=== PATIENT | female | born 1965 | race Caucasian/White ===

== ENCOUNTER → 2018-05-11 07:00 | Outpatient (CLI) | payer OTHER, SELFPAY ==
[2018-05-11 07:19] LABS: Add Manual Diff / Slide Review NO; Basophils Percent Auto 1.4 % (0-2); Eosinophils Percent Auto 2.3 % (2-4); Hematocrit 43.7 % (36-46); Hemoglobin 14.8 g/dL (12.0-16.0); Mean Corpuscular HGB Conc 33.9 % (30-36); Mean Corpuscular Hemoglobin 34.6 PG (26-34); Mean Corpuscular Volume 102.3 fL (80-100); Monocytes Percent Auto 8.6 % (3-14); Neutrophils Absolute Auto 3600 /uL (3000-5900); Neutrophils Percent Auto 61.7 % (50-75); Platelet Count 214 X10^3/uL (150-400); Red Blood Cell Count 4.28 X10^6/uL (4.0-5.2); Red Cell Distribution Width 13.6 % (11.6-14.8); White Blood Cell Count 5.9 X10^3/uL (4.5-11.0)
[2018-05-11 07:32] LABS: Alanine Aminotransferase 71 IU/L (9-52); Albumin 4.8 g/dL (3.5-5.0); Albumin Globulin Ratio 1.7 (1.0-2.8); Alkaline Phosphatase 91 U/L (38-126); Aspartate Aminotransferase 87 IU/L (14-36); BUN Creatinine Ratio 18.3 (6-22); Bilirubin Total 0.6 mg/dL (0.2-1.3); Blood Urea Nitrogen 11 mg/dL (7-17); Calcium 9.6 mg/dL (8.4-10.2); Carbon Dioxide 29 mmol/L (22-32); Chloride 104 mmol/L (98-107); Estimated Glomerular Filt Rate > 60.0 mL/min (>60); Globulin 2.9 g/dL (1.7-4.1); Glucose 95 mg/dL (70-100); HEMOLYSIS 18 (0-50); Potassium 4.6 mmol/L (3.4-5.1); Sodium 145 mmol/L (137-145); Total Protein 7.7 g/dL (6.3-8.2)
[2018-05-11 08:44] LABS: Free T3, Triiodothyronine Free 3.48 pg/mL (2.77-5.27); Free T4, Direct Thyroxine 1.35 ng/dL (0.78-2.19)
[2018-05-11 08:57] LABS: Thyroid Stimulating Hormone 0.58 uIU/mL (0.47-4.68)
== END ==
PROVIDERS: PCP Family Medicine; Visit Provider Family Medicine
DX: E03.9 Hypothyroidism, unspecified (principal); E78.5 Hyperlipidemia, unspecified; Z51.81 Encounter for therapeutic drug level monitoring
CPT/HCPCS: 36415; 80053; 84439; 84443; 84481; 85025

== ENCOUNTER → 2018-06-14 14:50 | Outpatient (CLI) | payer OTHER, SELFPAY ==
--- NOTE | 2018-06-14 | DI.US.S_ITS ---
PROCEDURE: US ABDOMEN COMPLETE INDICATIONS: ELEVATED LIVER ENZYMES TECHNIQUE: Real-time scanning was performed of the abdominal and retroperitoneal organs, with image documentation. COMPARISON: [facility], US, ABDOMEN COMPLETE, 02/13/2014, 9:06. FINDINGS: Liver: Liver is diffusely increased in echogenicity. No focal hepatic abnormalities identified. Normal hepatic size. Gallbladder: No gallstones identified. Normal gallbladder wall. No pericholecystic fluid. Negative sonographic Valderrama sign. Biliary ducts: Intrahepatic bile ducts are non-dilated. Extrahepatic bile duct caliber measures 2.7 mm. Normal is 6-7 mm or less in diameter, or 10 mm or less post-cholecystectomy. Pancreas: Visualized portions of the pancreas are sonographically normal. Spleen: Spleen is normal in size and homogeneous in echotexture. Kidneys: Kidneys are normal in size and echotexture. Right kidney measures 10.8 cm long; left kidney measures 10.2 cm long. No hydronephrosis or nephrolithiasis. No solid masses. Aorta: Visualized aorta is normal in caliber at less than 3 cm. Iliacs: Proximal common iliac arteries are normal in caliber at less than 2.5 cm. IVC: Intrahepatic inferior vena cava is patent. Miscellaneous: No free abdominal fluid. IMPRESSION: Increased hepatic echogenicity noted possibly related to hepatic steatosis but other sources of hepatocellular disease cannot be excluded. Recommend clinical correlation. Dictated by: Gaurav SANCHEZ Interpreted: Clarke Smart MD on 06/14/2018 at 15:32 Approved by: Osito Nam M.D. on 06/15/2018 at 10:07
== END ==
PROVIDERS: PCP Family Medicine; Visit Provider Family Medicine
DX: K76.9 Liver disease, unspecified (principal); R74.8 Abnormal levels of other serum enzymes
CPT/HCPCS: 76700

== ENCOUNTER → 2018-06-21 07:10 | Outpatient (CLI) | payer OTHER, SELFPAY ==
[2018-06-21 08:16] LABS: Add Manual Diff / Slide Review NO; Basophils Percent Auto 1.1 % (0-2); Eosinophils Percent Auto 2.3 % (2-4); Hematocrit 43.2 % (36-46); Hemoglobin 14.8 g/dL (12.0-16.0); Lymphocytes Percent Auto 22.7 % (25-40); Mean Corpuscular HGB Conc 34.2 % (30-36); Mean Corpuscular Hemoglobin 34.1 PG (26-34); Mean Corpuscular Volume 99.7 fL (80-100); Monocytes Percent Auto 8.3 % (3-14); Neutrophils Absolute Auto 3900 /uL (3000-5900); Neutrophils Percent Auto 65.6 % (50-75); Platelet Count 198 X10^3/uL (150-400); Red Blood Cell Count 4.34 X10^6/uL (4.0-5.2); Red Cell Distribution Width 12.6 % (11.6-14.8); White Blood Cell Count 5.9 X10^3/uL (4.5-11.0)
[2018-06-21 08:34] LABS: Alanine Aminotransferase 52 IU/L (9-52); Albumin 4.4 g/dL (3.5-5.0); Albumin Globulin Ratio 1.7 (1.0-2.8); Alkaline Phosphatase 91 U/L (38-126); Aspartate Aminotransferase 57 IU/L (14-36); Bilirubin Total 0.7 mg/dL (0.2-1.3); Blood Urea Nitrogen 12 mg/dL (7-17); Carbon Dioxide 29 mmol/L (22-32); Chloride 102 mmol/L (98-107); Estimated Glomerular Filt Rate > 60.0 mL/min (>60); Globulin 2.6 g/dL (1.7-4.1); Glucose 103 mg/dL (70-100); HEMOLYSIS < 15 (0-50); Potassium 3.9 mmol/L (3.4-5.1); Sodium 141 mmol/L (137-145)
[2018-06-24 13:26] LABS: Hepatitis A Antibody IgM NONREACTIVE (NONREACTIVE); Hepatitis Acute Panel Interp 0.01 (NONREACTIVE); Hepatitis B Core Antibody IgM NONREACTIVE (NONREACTIVE); Hepatitis B Surface Antigen NONREACTIVE (NONREACTIVE); Hepatitis C Antibody NONREACTIVE
== END ==
PROVIDERS: PCP Family Medicine; Visit Provider Family Medicine
DX: K70.9 Alcoholic liver disease, unspecified (principal)
CPT/HCPCS: 36415; 80053; 80074; 85025

== ENCOUNTER → 2019-02-25 10:09 | Outpatient (CLI) | payer OTHER, SELFPAY ==
[2019-02-25 11:11] LABS: Hemoglobin 14.2 g/dL (12.0-16.0); Mean Corpuscular HGB Conc 33.8 % (30-36); Mean Corpuscular Hemoglobin 33.9 PG (26-34); Platelet Count 181 X10^3/uL (150-400); Red Cell Distribution Width 13.7 % (11.6-14.8); White Blood Cell Count 6.3 X10^3/uL (4.5-11.0)
[2019-02-25 11:14] LABS: Alanine Aminotransferase 75 IU/L (9-52); Albumin 4.3 g/dL (3.5-5.0); Albumin Globulin Ratio 1.6 (1.0-2.8); Alkaline Phosphatase 116 U/L (38-126); Aspartate Aminotransferase 68 IU/L (14-36); BUN Creatinine Ratio 18.3 (6-22); Bilirubin Total 0.9 mg/dL (0.2-1.3); Blood Urea Nitrogen 11 mg/dL (7-17); Calcium 9.7 mg/dL (8.4-10.2); Carbon Dioxide 30 mmol/L (22-32); Chloride 102 mmol/L (98-107); Cholesterol 192 mg/dL (140-199); Estimated Glomerular Filt Rate > 60.0 mL/min (>60); Globulin 2.7 g/dL (1.7-4.1); Glucose 105 mg/dL (70-100); HDL Cholesterol 58 mg/dL (40-60); HEMOLYSIS < 15 (0-50); LDL Cholesterol Calculated 107 mg/dL (<100); Potassium 4.2 mmol/L (3.4-5.1); Sodium 139 mmol/L (137-145); Triglycerides 134 mg/dL (35-150)
[2019-02-25 11:28] LABS: Free T3, Triiodothyronine Free 3.67 pg/mL (2.77-5.27); Free T4, Direct Thyroxine 0.96 ng/dL (0.78-2.19)
[2019-02-25 11:29] LABS: Neutrophils Absolute Manual 3906 /uL (3000-5900); Total Cells Counted 100
[2019-02-25 11:30] LABS: Macrocytosis 1+
[2019-02-25 11:31] LABS: RBC Morphology See
[2019-02-25 11:42] LABS: Thyroid Stimulating Hormone 0.72 uIU/mL (0.47-4.68)
== END ==
PROVIDERS: PCP Family Medicine; Visit Provider Family Medicine
DX: E03.9 Hypothyroidism, unspecified (principal); Z51.81 Encounter for therapeutic drug level monitoring
CPT/HCPCS: 36415; 80053; 80061; 84439; 84443; 84481; 85025

== ENCOUNTER → 2019-05-13 10:30 | Outpatient (CLI) | payer OTHER, SELFPAY ==
[2019-05-13 11:01] LABS: Influenza A and B by PCR Rapid Negative (Negative)
== END ==
PROVIDERS: PCP Family Medicine; Visit Provider Nurse Practitioner
DX: R68.89 Other general symptoms and signs (principal)
CPT/HCPCS: 87400; 87502

== ENCOUNTER 2019-07-18 11:09 | Emergency (ER) | payer OTHER, SELFPAY ==
[2019-07-18 11:17] VITALS: BP 130/90; PULSE 98; RESP 20; TEMP 36.4; O2SAT 99
[2019-07-18 11:29] LABS: Appearance Urine UA CLEAR; Bilirubin Urine UA NEGATIVE (NEGATIVE); Color Urine UA YELLOW; Glucose Urine UA NEGATIVE (Negative); Ketones Urine UA NEGATIVE (NEGATIVE); Leukocyte Esterase Urine UA NEGATIVE (NEGATIVE); Nitrite Urine UA NEGATIVE (Negative); Occult Blood Urine UA NEGATIVE (Negative); Protein Urine UA TRACE (Negative); Specific Gravity Urine UA 1.025 (1.000-1.035); Urobilinogen Urine UA 0.2 E.U./dL (0.2)
[2019-07-18 11:43] LABS: Add Manual Diff / Slide Review NO; Basophils Absolute Auto 100 /uL (0-100); Basophils Percent Auto 0.7 % (0-2); Eosinophils Absolute Auto 100 /uL (0-450); Eosinophils Percent Auto 1.5 % (2-4); Lymphocytes Absolute Auto 2300 /uL (1100-4500); Lymphocytes Percent Auto 30.5 % (25-40); Mean Corpuscular HGB Conc 34.8 % (30-36); Mean Corpuscular Hemoglobin 32.1 PG (26-34); Mean Corpuscular Volume 92.5 fL (80-100); Monocytes Absolute Auto 500 /uL (0-900); Monocytes Percent Auto 6.6 % (3-14); Neutrophils Absolute Auto 4600 /uL (1500-7000); Neutrophils Percent Auto 60.7 % (50-75); Platelet Count 194 X10^3/uL (150-400); Red Blood Cell Count 4.65 X10^6/uL (4.0-5.2); Red Cell Distribution Width 13.6 % (11.6-14.8); White Blood Cell Count 7.6 X10^3/uL (4.5-11.0)
--- NOTE | 2019-07-18 11:45 | ED.ABDPAIN ---
HPI - Abdominal Pain <Twila Chavez PA-C - Last Filed: 07/18/19 20:57> General Chief Complaint: Abdominal Pain Stated Complaint: bloody stool,stomach cramping,kidney pain,headache Time Seen by Provider: 07/18/19 11:26 Source: patient Mode of arrival: Ambulatory Limitations: no limitations History of Present Illness HPI narrative: This 53-year-old female comes to ED secondary to 1 week history of gradually worsening flank and lower abdominal pain and cramping. She states pain can radiate into the suprapubic area. She states that she has had small amounts of blood on the toilet paper intermittently, becoming more persistent, and she has been a bit constipated and straining more, but having regular bowel movements. She denies any hematuria or urinary symptoms. She states that with this, she has had fatigue and poor appetite. She has not eaten today, has tolerated fluids without problem. She denies nausea or vomiting. She denies fever, chills, sweats. States that she missed work yesterday, called her PCP to be seen and was sent here, need evaluation since she missed work again today. She states that she did eat a little bit yesterday. There don't seem to be alleviating or exacerbating features for pain, which is constant. She states that she doesn't typically take pain medicine for this at home, occasionally takes Tylenol or ibuprofen if needed. She states that she has some ongoing smoker's cough, no increased cough or upper respiratory symptoms. She denies chest pain or dyspnea. She previously abused alcohol but quit drinking in the summer. She denies history of gastritis or bleeding. She denies possibility of . Notes she has had intermittent vaginal spotting for more than a year, but doesn't think quite postmenopausal Related Data Previous Rx's Medication Instructions Recorded atorvastatin 40 mg tablet 40 mg PO HS #30 tab 04/18/19 levothyroxine 50 mcg tablet 50 mcg PO QAM #30 tab 04/18/19 venlafaxine 150 mg 150 mg PO QDAY #30 cap 04/18/19 capsule,extended release 24 hr ondansetron 4 mg disintegrating 4 mg PO Q8H #10 tab 05/13/19 tablet Allergies Allergy/AdvReac Type Severity Reaction Status Date / Time hydrocodone [HYDROCODONE] Allergy Intermediate Hives all Verified 05/13/19 10:25 over codeine [CODEINE] Allergy Unknown Verified 05/13/19 10:25 Patient History <Twila Chavez PA-C - Last Filed: 07/18/19 20:57> Medical History (Updated 07/18/19 @ 13:51 by Twila Chavez PA-C) Alcoholism in recovery (Chronic) Depression (Chronic) HTN (hypertension) (Chronic) Hyperlipidemia (Chronic) Hypothyroid (Chronic) Surgical History History of carpal tunnel repair Status post tubal ligation Social History Smoking Status: Current every day smoker Smoking Status: Current every day smoker Exam <Twila Chavez PA-C - Last Filed: 07/18/19 20:57> Narrative Exam Narrative: GENERAL APPEARANCE: Patient sitting comfortably, in no distress. HEENT: PERRL, EOMI, conjunctiva pink, no scleral icterus NECK: Supple, no masses LUNGS: Clear to auscultation bilaterally. HEART: Rate and rhythm regular, normal S1 and S2, no S3 or S4. ABDOMEN: Soft, nondistended, bowel sounds present x 4 quadrants, no masses palpable, no hepatosplenomegaly. Mild bilateral CVAT, minimal bilateral lower quadrant tenderness, mild suprapubic tenderness without guarding or rebound EXTREMITIES: No edema, no calf tenderness DERMATOLOGIC: No jaundice or exanthem NEUROLOGIC: Alert and oriented with normal speech and coordination RECTAL: There are some noninflamed tags, no visible external or palpable internal masses brown stool in vault, guaiac negative Initial Vital Signs Initial Vital Signs: Vital Signs Temperature 97.6 F 07/18/19 11:17 Pulse Rate 98 H 07/18/19 11:17 Respiratory Rate 20 07/18/19 11:17 Blood Pressure 130/90 07/18/19 11:17 Pulse Oximetry 99 07/18/19 11:17 <Maura Walton DO - Last Filed: 07/21/19 05:52> Initial Vital Signs Initial Vital Signs: Vital Signs Temperature 97.6 F 07/18/19 11:17 Pulse Rate 98 H 07/18/19 11:17 Respiratory Rate 20 07/18/19 11:17 Blood Pressure 130/90 07/18/19 11:17 Pulse Oximetry 99 07/18/19 11:17 Course <Twila Chavez PA-C - Last Filed: 07/18/19 20:57> Course Additional Information: Reviewed findings with patient, no clear surgical findings or indication for admission. She is feeling better after fluids and medications, tolerating oral fluids. She agrees to follow up with her PCP, preferably tomorrow to reassess and determine whether further workup or referral needed. Return precautions given and she is agreeable with these as well. Orders Ordered: Discontinued Medications Sodium Chloride (Normal Saline 0.9%) 1,000 mls @ 1,000 mls/hr IV BOLUS ONE Stop: 07/18/19 13:03 Last Infusion: 07/18/19 14:10 Dose: 0 mls/hr Documented by: Admin: 07/18/19 12:36 Dose: 1,000 mls/hr Documented by: RAMILA Ketorolac Tromethamine (Toradol) 30 mg IV NOW ONE Stop: 07/18/19 12:05 Last Admin: 07/18/19 12:36 Dose: 30 mg Documented by: RAMILA Pantoprazole Sodium (Protonix) 40 mg IV NOW ONE Stop: 07/18/19 12:08 Last Admin: 07/18/19 12:37 Dose: 40 mg Documented by: RAMILA Vital Signs Vital signs: Vital Signs - 8 hr 07/18/19 12:59 07/18/19 14:12 Temperature 97.6 F Pulse Rate 98 H 70 Respiratory Rate 20 Blood Pressure 130/90 121/76 Pulse Oximetry 99 100 <Maura Walton DO - Last Filed: 07/21/19 05:52> Orders Ordered: Discontinued Medications Sodium Chloride (Normal Saline 0.9%) 1,000 mls @ 1,000 mls/hr IV BOLUS ONE Stop: 07/18/19 13:03 Last Infusion: 07/18/19 14:10 Dose: 0 mls/hr Documented by: Admin: 07/18/19 12:36 Dose: 1,000 mls/hr Documented by: RAMILA Ketorolac Tromethamine (Toradol) 30 mg IV NOW ONE Stop: 07/18/19 12:05 Last Admin: 07/18/19 12:36 Dose: 30 mg Documented by: RAMILA Pantoprazole Sodium (Protonix) 40 mg IV NOW ONE Stop: 07/18/19 12:08 Last Admin: 07/18/19 12:37 Dose: 40 mg Documented by: RAMILA Vital Signs Vital signs: Vital Signs - 8 hr 07/18/19 12:59 07/18/19 14:12 Temperature 97.6 F Pulse Rate 98 H 70 Respiratory Rate 20 Blood Pressure 130/90 121/76 Pulse Oximetry 99 100 MDM - Abdominal Pain <Twila Chavez PA-C - Last Filed: 07/18/19 20:57> Lab Data Attestation: I reviewed the patient's lab results. Result diagrams: 07/18/19 11:30 07/18/19 11:30 Labs: Lab Results 07/18/19 07/18/19 07/18/19 Range/Units 11:20 11:30 11:30 WBC 7.6 (4.5-11.0) X10^3/uL RBC 4.65 (4.0-5.2) X10^6/uL Hgb 15.0 (12.0-16.0) g/dL Hct 43.0 (36-46) % MCV 92.5 (80-100) fL MCH 32.1 (26-34) PG MCHC 34.8 (30-36) % RDW 13.6 (11.6-14.8) % Plt Count 194 (150-400) X10^3/uL Neut % (Auto) 60.7 (50-75) % Lymph % (Auto) 30.5 (25-40) % Petroleum % (Auto) 6.6 (3-14) % Eos % (Auto) 1.5 L (2-4) % Baso % (Auto) 0.7 (0-2) % Neut # (Auto) 4600 (3695-1055) /uL Lymph # (Auto) 2300 (8280-6225) /uL Petroleum # (Auto) 500 (0-900) /uL Eos # (Auto) 100 (0-450) /uL Baso # (Auto) 100 (0-100) /uL Sodium 139 (137-145) mmol/L Potassium 4.1 (3.4-5.1) mmol/L Chloride 104 (98-107) mmol/L Carbon Dioxide 27 (22-32) mmol/L BUN 12 (7-17) mg/dL Creatinine 0.60 (0.52-1.04) mg/dL Estimated GFR > 60.0 (>60) mL/min BUN/Creatinine Ratio 20.0 (6-22) Glucose 98 (70-100) mg/dL Calcium 9.9 (8.4-10.2) mg/dL Total Bilirubin 0.7 (0.2-1.3) mg/dL AST 27 (14-36) IU/L ALT 19 (<35) IU/L Alkaline Phosphatase 90 (38-126) U/L Total Protein 7.2 (6.3-8.2) g/dL Albumin 4.5 (3.5-5.0) g/dL Globulin 2.7 (1.7-4.1) g/dL Albumin/Globulin Ratio 1.7 (1.0-2.8) Lipase 67 (23-300) U/L Urine Color Yellow Urine Appearance Clear Urine pH 6.0 (4.5-8.0) Ur Specific [place] 1.025 (1.000-1.035) Urine Protein Trace H (Negative) Urine Glucose (UA) Negative (Negative) g/dL Urine Ketones Negative (NEGATIVE) Urine Occult Blood Negative (Negative) Urine Nitrate Negative (Negative) Urine Bilirubin Negative (NEGATIVE) Urine Urobilinogen 0.2 (0.2) E.U./dL Ur Leukocyte Esterase Negative (NEGATIVE) Urine RBC 0-1/hpf (0-5/HPF) Urine WBC 0-1/hpf (0-5/HPF) Ur Squamous Epith Cells 5-10 /hpf H (0-5/HPF) Urine Bacteria Few (2-10) H (None) Urine Mucus 2+ H (Negative) Ur Culture Indicated? Cult not indicated Imaging Data KUB CT: Radiologist's impression: 17 Twila Chavez PA-C Find Patient Imaging - Lola Parsons 53 F 1965 ACTIVITY DATE EXAM STATUS AUTHOR 07/18/19 12:[address] [address] [address] Scan Report Signed Patient: Adelina Parsons#: [id number] : 1965Acct:[id number] Age/Sex: 53 / FDate of Service: 07/18/19 Loc: ED Accession Number: [id number] Procedure: CT kidney ureter bladder (KUB) Ordering Provider: Twila Chavez P.A-C PROCEDURE: CT KIDNEY URETER BLADDER (KUB) INDICATIONS: bilateral flank and suprapubic pain for 1 week TECHNIQUE: Noncontrast 5 mm thick sections acquired from the diaphragms to the symphysis. 5 mm thick coronal and sagittal reformats were then performed. For radiation dose reduction, the following was used: automated exposure control, adjustment of mA and/or kV according to patient size. COMPARISON: None. FINDINGS: Image quality: Excellent. Lung bases: Atelectasis noted in the lung bases bilaterally. Heart size is normal. Urinary system: Both kidneys are normal in size. No kidney stones. No hydronephrosis or perinephric fat stranding. Both ureters appear non-dilated throughout their expected courses. Bladder wall thickness is normal; no calcified bladder stones. Other solid organs: Liver is normal in size. Gallbladder is within normal limits. Pancreas is normal in contours. Spleen is normal in size. No adrenal nodules. Peritoneum and bowel: Unenhanced bowel loops demonstrate normal wall thickness and caliber. A few, scattered colonic diverticuli without evidence of diverticulitis. No free fluid or air. The appendix is normal. Nodes and vessels: No retroperitoneal or mesenteric adenopathy by size criteria. Aorta and inferior vena cava are normal in caliber. Scattered atherosclerotic calcifications involving the abdominal and pelvic vasculature. Abdominal wall: No ventral hernias. Pelvis: No free pelvic fluid. No inguinal hernias or adenopathy. Bones: No suspicious bony lesions. No vertebral body compression fractures. Spine degenerative disc disease and facet arthropathy. IMPRESSION: 1. No renal stone or hydronephrosis. 2. No evidence of appendicitis. 3. No free fluid or free air. 4. No dilated loops of bowel. Dictated by: Payton Santillan MD, PhD on 07/18/2019 at 13:22 Approved by: Payton Santillan MD, PhD on 07/18/2019 at 13:26 <Maura Walton DO - Last Filed: 07/21/19 05:52> Lab Data Labs: Lab Results 07/18/19 07/18/19 07/18/19 Range/Units 11:20 11:30 11:30 WBC 7.6 (4.5-11.0) X10^3/uL RBC 4.65 (4.0-5.2) X10^6/uL Hgb 15.0 (12.0-16.0) g/dL Hct 43.0 (36-46) % MCV 92.5 (80-100) fL MCH 32.1 (26-34) PG MCHC 34.8 (30-36) % RDW 13.6 (11.6-14.8) % Plt Count 194 (150-400) X10^3/uL Neut % (Auto) 60.7 (50-75) % Lymph % (Auto) 30.5 (25-40) % Petroleum % (Auto) 6.6 (3-14) % Eos % (Auto) 1.5 L (2-4) % Baso % (Auto) 0.7 (0-2) % Neut # (Auto) 4600 (6181-8886) /uL Lymph # (Auto) 2300 (9199-5309) /uL Petroleum # (Auto) 500 (0-900) /uL Eos # (Auto) 100 (0-450) /uL Baso # (Auto) 100 (0-100) /uL Sodium 139 (137-145) mmol/L Potassium 4.1 (3.4-5.1) mmol/L Chloride 104 (98-107) mmol/L Carbon Dioxide 27 (22-32) mmol/L BUN 12 (7-17) mg/dL Creatinine 0.60 (0.52-1.04) mg/dL Estimated GFR > 60.0 (>60) mL/min BUN/Creatinine Ratio 20.0 (6-22) Glucose 98 (70-100) mg/dL Calcium 9.9 (8.4-10.2) mg/dL Total Bilirubin 0.7 (0.2-1.3) mg/dL AST 27 (14-36) IU/L ALT 19 (<35) IU/L Alkaline Phosphatase 90 (38-126) U/L Total Protein 7.2 (6.3-8.2) g/dL Albumin 4.5 (3.5-5.0) g/dL Globulin 2.7 (1.7-4.1) g/dL Albumin/Globulin Ratio 1.7 (1.0-2.8) Lipase 67 (23-300) U/L Urine Color Yellow Urine Appearance Clear Urine pH 6.0 (4.5-8.0) Ur Specific [place] 1.025 (1.000-1.035) Urine Protein Trace H (Negative) Urine Glucose (UA) Negative (Negative) g/dL Urine Ketones Negative (NEGATIVE) Urine Occult Blood Negative (Negative) Urine Nitrate Negative (Negative) Urine Bilirubin Negative (NEGATIVE) Urine Urobilinogen 0.2 (0.2) E.U./dL Ur Leukocyte Esterase Negative (NEGATIVE) Urine RBC 0-1/hpf (0-5/HPF) Urine WBC 0-1/hpf (0-5/HPF) Ur Squamous Epith Cells 5-10 /hpf H (0-5/HPF) Urine Bacteria Few (2-10) H (None) Urine Mucus 2+ H (Negative) Ur Culture Indicated? Cult not indicated Discharge Plan Departure Patient Disposition: Home Clinical Impression: Flank pain, Rectal bleeding Discharge Date/Time: 07/18/19 14:12 Instructions: DI for Abdominal Pain-Adult, DI for Rectal Bleeding Activity Restrictions/Additional Instructions: There was no clear findings to explain your symptoms on your lab work or scan today. Since you are feeling better, I do think you can monitor at home, but please be sure to follow-up with your PCP, preferably tomorrow, to see how you are doing, determine whether you need further testing or referral and whether you can return to work. Please drink plenty of clear fluids and a bland diet as we talked about. You can add a little MiraLax, 1 dose daily, to help soften stools and help constipation. There was not blood in your stool when I examined you today, however this may need further testing as well. As we talked about, you should return if you have any acutely worsening symptoms, or new symptoms such as fever or protracted vomiting. Prescriptions: No Action ondansetron 4 mg tablet,disintegrating 4 mg PO Q8H Qty: 10 RF: 0 atorvastatin [Lipitor] 40 mg tablet 40 mg PO HS Qty: 30 RF: 5 levothyroxine 50 mcg tablet 50 mcg PO QAM Qty: 30 RF: 5 venlafaxine [Effexor XR] 150 mg capsule,extended release 24hr 150 mg PO QDAY Qty: 30 RF: 5 Referrals: MarcioAngelika, [Primary Care Provider] - Stand Alone Forms: Work Release Note
[2019-07-18 11:46] LABS: Bacteria Urine Few (2-10); Culture Indicated Urine Cult Not Indicated; Mucus Urine 2+ (Negative); RBC Urine 0-1/HPF (0-5/HPF); Squamous Epithelial Cell Urine 5-10 /HPF (0-5/HPF); WBC Urine 0-1/HPF (0-5/HPF)
[2019-07-18 11:55] LABS: Alanine Aminotransferase 19 IU/L (<35); Albumin 4.5 g/dL (3.5-5.0); Albumin Globulin Ratio 1.7 (1.0-2.8); Alkaline Phosphatase 90 U/L (38-126); Aspartate Aminotransferase 27 IU/L (14-36); Bilirubin Total 0.7 mg/dL (0.2-1.3); Blood Urea Nitrogen 12 mg/dL (7-17); Calcium 9.9 mg/dL (8.4-10.2); Carbon Dioxide 27 mmol/L (22-32); Chloride 104 mmol/L (98-107); Estimated Glomerular Filt Rate > 60.0 mL/min (>60); Globulin 2.7 g/dL (1.7-4.1); Glucose 98 mg/dL (70-100); HEMOLYSIS < 15 (0-50); Lipase 67 U/L (23-300); Potassium 4.1 mmol/L (3.4-5.1); Sodium 139 mmol/L (137-145); Total Protein 7.2 g/dL (6.3-8.2)
--- NOTE | 2019-07-18 12:12 | DI.CT.S_ITS ---
PROCEDURE: CT KIDNEY URETER BLADDER (KUB) INDICATIONS: bilateral flank and suprapubic pain for 1 week TECHNIQUE: Noncontrast 5 mm thick sections acquired from the diaphragms to the symphysis. 5 mm thick coronal and sagittal reformats were then performed. For radiation dose reduction, the following was used: automated exposure control, adjustment of mA and/or kV according to patient size. COMPARISON: None. FINDINGS: Image quality: Excellent. Lung bases: Atelectasis noted in the lung bases bilaterally. Heart size is normal. Urinary system: Both kidneys are normal in size. No kidney stones. No hydronephrosis or perinephric fat stranding. Both ureters appear non-dilated throughout their expected courses. Bladder wall thickness is normal; no calcified bladder stones. Other solid organs: Liver is normal in size. Gallbladder is within normal limits. Pancreas is normal in contours. Spleen is normal in size. No adrenal nodules. Peritoneum and bowel: Unenhanced bowel loops demonstrate normal wall thickness and caliber. A few, scattered colonic diverticuli without evidence of diverticulitis. No free fluid or air. The appendix is normal. Nodes and vessels: No retroperitoneal or mesenteric adenopathy by size criteria. Aorta and inferior vena cava are normal in caliber. Scattered atherosclerotic calcifications involving the abdominal and pelvic vasculature. Abdominal wall: No ventral hernias. Pelvis: No free pelvic fluid. No inguinal hernias or adenopathy. Bones: No suspicious bony lesions. No vertebral body compression fractures. Spine degenerative disc disease and facet arthropathy. IMPRESSION: 1. No renal stone or hydronephrosis. 2. No evidence of appendicitis. 3. No free fluid or free air. 4. No dilated loops of bowel. Dictated by: Payton Santillan MD, PhD on 07/18/2019 at 13:22 Approved by: Payton Santillan MD, PhD on 07/18/2019 at 13:26
[2019-07-18] MEDS: KETOROLAC 60 MG/2 ML VIAL 30 MG IV (12:36)
[2019-07-18] MEDS: SODIUM CHLORIDE 0.9% 1,000 ML 1000 ML IV (12:36)
[2019-07-18] MEDS: PANTOPRAZOLE 40 MG VIAL IV (12:37)
[2019-07-18 12:59] VITALS: BP 130/90; PULSE 98; RESP 20; TEMP 36.4; O2SAT 99
[2019-07-18 14:12] VITALS: BP 121/76; PULSE 70; O2SAT 100
== END 2019-07-18 14:12 | disposition home or self-care (01) ==
PROVIDERS: Emergency Medicine; Emergency Provider Internal Medicine; PCP Family Medicine
DX: R10.9 Unspecified abdominal pain (principal); K62.5 Hemorrhage of anus and rectum; I10 Essential (primary) hypertension; E78.5 Hyperlipidemia, unspecified; E03.9 Hypothyroidism, unspecified
CPT/HCPCS: 74176; 80053; 81001; 83690; 85025; 96361; 96374; 96375; 99284; C9113; J1885

== ENCOUNTER → 2019-07-22 10:07 | Outpatient (CLI) | payer OTHER, SELFPAY | PROVIDERS: PCP Family Medicine; Visit Provider Family Medicine | DX: R35.0 Frequency of micturition (principal) | CPT/HCPCS: 87086 ==

== ENCOUNTER → 2020-02-06 07:58 | Outpatient (CLI) | payer OTHER, SELFPAY ==
[2020-02-06 08:32] LABS: Hematocrit 42.2 % (36-46); Hemoglobin 14.8 g/dL (12.0-16.0); Mean Corpuscular HGB Conc 35.1 % (30-36); Mean Corpuscular Hemoglobin 32.6 PG (26-34); Mean Corpuscular Volume 92.9 fL (80-100); Platelet Count 200 X10^3/uL (150-400); Red Blood Cell Count 4.54 X10^6/uL (4.0-5.2); Red Cell Distribution Width 13.6 % (11.6-14.8); White Blood Cell Count 6.8 X10^3/uL (4.5-11.0)
[2020-02-06 08:43] LABS: Alanine Aminotransferase 34 IU/L (<35); Albumin 4.6 g/dL (3.5-5.0); Albumin Globulin Ratio 1.9 (1.0-2.8); Alkaline Phosphatase 102 U/L (38-126); Aspartate Aminotransferase 35 IU/L (14-36); BUN Creatinine Ratio 28.3 (6-22); Bilirubin Total 0.5 mg/dL (0.2-1.3); Blood Urea Nitrogen 17 mg/dL (7-17); Calcium 10.3 mg/dL (8.4-10.2); Carbon Dioxide 26 mmol/L (22-32); Chloride 107 mmol/L (98-107); Cholesterol 203 mg/dL (140-199); Estimated Glomerular Filt Rate > 60.0 mL/min (>60); Globulin 2.4 g/dL (1.7-4.1); Glucose 106 mg/dL (70-100); HDL Cholesterol 65 mg/dL (40-60); HEMOLYSIS < 15 (0-50); LDL Cholesterol Calculated 122 mg/dL (<100); Potassium 4.7 mmol/L (3.4-5.1); Sodium 139 mmol/L (137-145); Triglycerides 78 mg/dL (35-150)
== END ==
PROVIDERS: PCP Nurse Practitioner Family; Referring Provider Nurse Practitioner Family; Visit Provider Nurse Practitioner Family
DX: E03.9 Hypothyroidism, unspecified (principal); I10 Essential (primary) hypertension; E78.5 Hyperlipidemia, unspecified
CPT/HCPCS: 36415; 80053; 80061; 84443; 85027

== ENCOUNTER → 2021-04-21 07:24 | Outpatient (CLI) | payer OTHER, SELFPAY ==
[2021-04-21 15:54] LABS: Thyroid Stimulating Hormone 2.15 uIU/mL (0.47-4.68)
== END ==
PROVIDERS: PCP Physician Assistant; Referring Provider Physician Assistant; Visit Provider Physician Assistant
DX: E03.9 Hypothyroidism, unspecified (principal)
CPT/HCPCS: 36415; 84443

== ENCOUNTER → 2021-05-26 13:37 | Outpatient (CLI) | payer OTHER, SELFPAY ==
[2021-05-26 14:05] LABS: Add Manual Diff / Slide Review NO; Basophils Absolute Auto 0 /uL (0-100); Basophils Percent Auto 0.4 % (0-2); Eosinophils Absolute Auto 100 /uL (0-450); Eosinophils Percent Auto 1.4 % (2-4); Hematocrit 40.5 % (36-46); Hemoglobin 13.5 g/dL (12.0-16.0); Lymphocytes Absolute Auto 2900 /uL (1100-4500); Lymphocytes Percent Auto 45.6 % (25-40); Mean Corpuscular HGB Conc 33.4 % (30-36); Mean Corpuscular Hemoglobin 31.5 PG (26-34); Mean Corpuscular Volume 94.5 fL (80-100); Monocytes Absolute Auto 600 /uL (0-900); Monocytes Percent Auto 9.1 % (3-14); Neutrophils Absolute Auto 2700 /uL (1500-7000); Neutrophils Percent Auto 43.5 % (50-75); Platelet Count 197 X10^3/uL (150-400); Red Blood Cell Count 4.29 X10^6/uL (4.0-5.2); Red Cell Distribution Width 12.9 % (11.6-14.8); White Blood Cell Count 6.3 X10^3/uL (4.5-11.0)
[2021-05-26 14:25] LABS: Alanine Aminotransferase 40 IU/L (<35); Albumin 4.7 g/dL (3.5-5.0); Albumin Globulin Ratio 1.8 (1.0-2.8); Alkaline Phosphatase 88 U/L (38-126); Aspartate Aminotransferase 35 IU/L (14-36); Bilirubin Total 0.8 mg/dL (0.2-1.3); Blood Urea Nitrogen 16 mg/dL (7-17); Calcium 9.6 mg/dL (8.4-10.2); Carbon Dioxide 23 mmol/L (22-32); Chloride 105 mmol/L (98-107); Estimated Glomerular Filt Rate > 60.0 mL/min (>60); Globulin 2.6 g/dL (1.7-4.1); Glucose 87 mg/dL (70-100); HEMOLYSIS < 15 (0-50); Sodium 137 mmol/L (137-145); Total Protein 7.3 g/dL (6.3-8.2)
[2021-05-26 14:41] LABS: Free T4, Direct Thyroxine 0.89 ng/dL (0.78-2.19)
[2021-05-26 14:55] LABS: Thyroid Stimulating Hormone 1.79 uIU/mL (0.47-4.68)
== END ==
PROVIDERS: Referring Provider Physician Assistant; Visit Provider Physician Assistant
DX: R51.9 Headache, unspecified (principal); E03.9 Hypothyroidism, unspecified
CPT/HCPCS: 36415; 80053; 84439; 84443; 85025

== ENCOUNTER 2024-04-17 08:58 | Emergency (ER) | payer OTHER, SELFPAY ==
[2024-04-17 09:07] VITALS: BP 147/101; PULSE 104; O2SAT 94
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
[2024-04-17 09:11] VITALS: BP 147/101; PULSE 102; RESP 14; TEMP 36.8; O2SAT 96; BMI 27.4
[2024-04-17] MEDS: IBUPROFEN 400 MG TABLET 800 MG PO (09:25)
[2024-04-17 10:16] VITALS: PULSE 91; O2SAT 97
[2024-04-17 10:17] VITALS: BP 163/90; PULSE 91; RESP 20; O2SAT 97
== END 2024-04-17 10:40 | disposition home or self-care (01) ==
PROVIDERS: Emergency Provider Emergency Medicine
DX: S93.401A Sprain of unspecified ligament of right ankle, initial encounter (principal); W10.9XXA Fall (on) (from) unspecified stairs and steps, initial encounter
CPT/HCPCS: 29515; 29540; 73610; 73630; 99283; 99284

== ENCOUNTER 2024-06-11 14:53 | Emergency (ER) | payer OTHER, SELFPAY ==
[2024-06-11 14:58] VITALS: BP 154/82; PULSE 94; RESP 17; TEMP 36.3; O2SAT 97; BMI 25.6
== END 2024-06-11 15:05 | disposition left against medical advice (07) ==
PROVIDERS: Emergency Provider Emergency Medicine
CPT/HCPCS: 99281

== ENCOUNTER 2024-06-12 07:52 | Emergency (ER) | payer OTHER, SELFPAY ==
--- NOTE | 2024-06-12 08:15 | DI.RAD.S_ITS ---
PROCEDURE: XR FINGER LT MIN 2V INDICATIONS: swollen thumb. TECHNIQUE: AP hand, 2 views of the thumb acquired. COMPARISON: None. FINDINGS: Bones: No fractures or dislocations. 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 No suspicious bony lesions. Soft tissues: No suspicious soft tissue calcifications. IMPRESSION: No acute bony abnormality. 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 Dictated by: Rashid Newsome M.D. on 06/12/2024 at 8:35 Approved by: Rashid Newsome M.D. on 06/12/2024 at 8:37
[2024-06-12 08:16] VITALS: BP 143/84; PULSE 83; RESP 19; TEMP 36.3; O2SAT 99; BMI 24.7
[2024-06-12 10:17] LABS: Add Manual Diff / Slide Review NO; Basophils Absolute Auto 100 /uL (0-100); Eosinophils Absolute Auto 100 /uL (0-450); Eosinophils Percent Auto 1.3 % (2-4); Hematocrit 45.7 % (36-46); Hemoglobin 15.6 g/dL (12.0-16.0); Lymphocytes Absolute Auto 2200 /uL (1100-4500); Lymphocytes Percent Auto 28.2 % (25-40); Mean Corpuscular HGB Conc 34.1 % (30-36); Mean Corpuscular Hemoglobin 32.7 PG (26-34); Mean Corpuscular Volume 95.7 fL (80-100); Monocytes Absolute Auto 600 /uL (0-900); Monocytes Percent Auto 7.3 % (3-14); Neutrophils Absolute Auto 4800 /uL (1500-7000); Neutrophils Percent Auto 62.2 % (50-75); Platelet Count 216 X10^3/uL (150-400); Red Blood Cell Count 4.77 X10^6/uL (4.0-5.2); Red Cell Distribution Width 13.2 % (11.6-14.8); White Blood Cell Count 7.7 X10^3/uL (4.5-11.0)
[2024-06-12 10:23] LABS: Alanine Aminotransferase 28 IU/L (<35); Albumin 4.8 g/dL (3.5-5.0); Albumin Globulin Ratio 1.6 (1.0-2.8); Alkaline Phosphatase 88 U/L (38-126); Aspartate Aminotransferase 27 IU/L (14-36); BUN Creatinine Ratio 17.2 (6-22); Bilirubin Total 0.7 mg/dL (0.2-1.3); Blood Urea Nitrogen 11 mg/dL (7-17); Carbon Dioxide 26 mmol/L (22-32); Chloride 105 mmol/L (98-107); Estimated Glomerular Filt Rate > 60 mL/min (>60); Glucose 106 mg/dL (70-100); HEMOLYSIS < 15 (0-50); Lipase 115 U/L (23-300); Potassium 4.1 mmol/L (3.4-5.1); Sodium 139 mmol/L (137-145); Total Protein 7.8 g/dL (6.3-8.2)
[2024-06-12 10:27] LABS: C-Reactive Protein Quant 1.4 mg/dL (<1.0)
--- NOTE | 2024-06-12 10:31 | ED.EXTPRO ---
HPI - Extremity Problem General Chief complaint: Extremity Problem,Nontraumatic Stated complaint: Swollen Left thumb Time Seen by Provider: 06/12/24 09:54 Source: patient Mode of arrival: Family Vehicle History of Present Illness HPI Narrative: 58-year-old woman with a history of depression, hyperlipidemia, hypothyroidism who noted swelling on the palmar surface of her left thumb, proximal phalanx 3 days ago. She assumes that there was a small foreign body but did not recollect any obvious episode of pain. She has tried ice, heat, with swollen enough yesterday that she tried poking it with a needle and got a small bit of blood and nothing else back. Continues to be swollen know the swelling is extending over the thenar eminence into the wrist and she has not lymphangitic streaking upper arms. No fevers, body aches, axillary adenopathy. Related Data Previous Rx's Medication Instructions Recorded atorvastatin 40 mg tablet (Lipitor) 40 mg PO HS #90 tabs 02/06/20 levothyroxine 50 mcg tablet 50 mcg PO QAM #90 tabs 02/06/20 venlafaxine 150 mg 150 mg PO QDAY #90 caps 02/06/20 capsule,extended release 24 hr (Effexor XR) doxycycline hyclate 100 mg capsule 100 mg PO BID #20 caps 06/12/24 oxycodone-acetaminophen 5 mg-325 1 tab PO Q6H PRN pain #5 tabs 06/12/24 mg tablet Allergies Allergy/AdvReac Type Severity Reaction Status Date / Time codeine [CODEINE] AdvReac Unknown Nausea Verified 06/12/24 08:19 Review of Systems Review of Systems Narrative: Pertinent positive and negative findings as per HPI Patient History Medical History Medication refill Skin rash Hyperlipidemia Hypothyroid Depression HTN (hypertension) Alcoholism in recovery Surgical History History of carpal tunnel repair Status post tubal ligation Social History Smoking Status: Current every day smoker Tobacco: How many years used: 30 quit status: considering quitting second hand exposure: No alcohol intake: never substance use type: does not use Smoking Status: Current every day smoker tobacco type: cigarettes alcohol intake frequency: 3 or more drinks per day Alcohol type: beer, wine and hard liquor Substance Use Type: marijuana Exam Initial Vital Signs Initial Vital Signs: Vital Signs Temperature 97.3 F L 06/12/24 08:16 Pulse Rate 83 06/12/24 08:16 Respiratory Rate 19 06/12/24 08:16 Blood Pressure 143/84 H 06/12/24 08:16 Pulse Oximetry 99 06/12/24 08:16 Oxygen Delivery Method Room Air 06/12/24 08:16 General: Alert appropriate in no acute distress Respiratory: Able to speak in full sentences, no obvious respiratory distress Cardiac: Was tachycardic on initial presentation and heart rate of 83 currently Extremity: Left thumb has some swelling more on the palmar surface, extending into the wrist with lymphangitic streaking. No at axillary adenopathy. No obvious drainable abscess Neurologic: Grossly intact no obvious asymmetries or abnormalities Psych: appropriate insight and affect, cooperative Course Orders Ordered: ED Orders 06/12/24 09:56 CRP [C-Reactive Protein Quant] Stat Complete Blood Count AUTO DIFF Stat Comprehensive Metabolic Panel Stat Lipase Stat Miscellaneous to [facility] Stat Discontinued Medications Ceftriaxone Sodium 2,000 mg/ (Sodium Chloride) 100 mls @ 200 mls/hr IV NOW ONE Stop: 06/12/24 10:37 Last Infusion: 06/12/24 11:54 Dose: Infused Documented By: Admin: 06/12/24 11:16 Dose: 200 mls/hr Documented By: ABELARDO Ketorolac Tromethamine (Ketorolac 30 Mg/Ml Vial) 15 mg IV NOW ONE Stop: 06/12/24 10:37 Last Admin: 06/12/24 11:18 Dose: 15 mg Documented By: ABELARDO Vital Signs Vital signs: Vital Signs - 8 hr 06/12/24 08:16 Temperature 97.3 F L Pulse Rate 83 Respiratory Rate 19 Blood Pressure 143/84 H Pulse Oximetry 99 Oxygen Delivery Method Room Air MDM - Extremity (Nontraumatic) Lab Data 06/12/24 09:56 06/12/24 09:56 Labs: Lab Results 06/12/24 Range/Units 09:56 WBC 7.7 (4.5-11.0) X10^3/uL RBC 4.77 (4.0-5.2) X10^6/uL Hgb 15.6 (12.0-16.0) g/dL Hct 45.7 (36-46) % MCV 95.7 (80-100) fL MCH 32.7 (26-34) PG MCHC 34.1 (30-36) % RDW 13.2 (11.6-14.8) % Plt Count 216 (150-400) X10^3/uL Neut % (Auto) 62.2 (50-75) % Lymph % (Auto) 28.2 (25-40) % Callahan % (Auto) 7.3 (3-14) % Eos % (Auto) 1.3 L (2-4) % Baso % (Auto) 1.0 (0-2) % Neut # (Auto) 4800 (5463-9213) /uL Lymph # (Auto) 2200 (8876-5050) /uL Callahan # (Auto) 600 (0-900) /uL Eos # (Auto) 100 (0-450) /uL Baso # (Auto) 100 (0-100) /uL Sodium 139 (137-145) mmol/L Potassium 4.1 (3.4-5.1) mmol/L Chloride 105 (98-107) mmol/L Carbon Dioxide 26 (22-32) mmol/L BUN 11 (7-17) mg/dL Creatinine 0.64 (0.52-1.04) mg/dL Estimated GFR > 60 (>60) mL/min BUN/Creatinine Ratio 17.2 (6-22) Glucose 106 H (70-100) mg/dL Calcium 10.0 (8.4-10.2) mg/dL Total Bilirubin 0.7 (0.2-1.3) mg/dL AST 27 (14-36) IU/L ALT 28 (<35) IU/L Alkaline Phosphatase 88 (38-126) U/L C-Reactive Protein 1.4 H (<1.0) mg/dL Total Protein 7.8 (6.3-8.2) g/dL Albumin 4.8 (3.5-5.0) g/dL Globulin 3.0 (1.7-4.1) g/dL Albumin/Globulin Ratio 1.6 (1.0-2.8) Lipase 115 (23-300) U/L MDM Narrative Medical decision making narrative: CC: Left thumb infection Data collected from: patient Differential considered: Foreign body, deep tissue axis, tendon involvement, cellulitis with lymphangitic streaking Exam documented above, pertinent findings include: Swelling warmth redness lymphangitic streaking all associated with the left thumb and wrist. She is neurovascularly intact Lab Test results independently reviewed as above. Pertinent findings: CBC is unremarkable Chemistries are reassuring C-reactive protein is slightly elevated at 1.4 Imaging studies independently reviewed: Hand x-ray does not show any obvious foreign body Consultations: Discussion with robinson Estrada. Agreed with current plan of IV antibiotics today and follow up as an outpatient in clinic tomorrow. Treatments: 2 g of IV ceftriaxone, parenteral Toradol Re-evaluations: Pain is moderately controlled. We will give her prescription for doxycycline Discussion: 58-year-old woman with cellulitis of the left thumb with concern for developing tenosynovitis or deeper foreign body. She was given ceftriaxone in the emergency department. Care is reviewed with Dr. Malik our orthopedic doctor. Patient will be seen in clinic tomorrow to make sure that she truly is improving or decide if surgical washout might be required. At this time there was no indication for hospitalization or further imaging studies. Plans reviewed with the patient questions are answered she is safe for discharge Discharge Plan Departure Patient Disposition: Home Clinical Impression: Cellulitis Qualifiers: Site of cellulitis: extremity Site of cellulitis of extremity: finger Laterality: left Qualified Code(s): L03.012 - Cellulitis of left finger Instructions: DI for Cellulitis -- Adult Activity Restrictions/Additional Instructions: Thank you for coming in today I am not seeing signs of overwhelming infection that would require hospitalization, however, the infection that you do have definitely needs the IV antibiotics were given you today and you will need to be seen in the orthopedic physician's office tomorrow to make sure that you are clearly improving. Please contact [facility] at [phone] later today. Let them know that you are in the ER, have hand infection, Dr. Malik wanted you seen in clinic tomorrow. Your prescription for doxycycline, antibiotic was electronically sent to [facility] pharmacy. I have given you 5 tablets of Percocet for severe pain. Using 400 mg of ibuprofen (2 amxe-lfo-kapeaiq pills) and 1 Tylenol every 6 hours can be very helpful in controlling pain. If you find that you are getting worse or develop any new symptoms, please feel free to return to the emergency department for further evaluation. Prescriptions: New doxycycline hyclate 100 mg capsule 100 mg PO BID Qty: 20 0RF oxycodone-acetaminophen 5-325 mg tablet 1 tab PO Q6H PRN (Reason: pain) Qty: 5 0RF No Action atorvastatin [Lipitor] 40 mg tablet 40 mg PO HS Qty: 90 0RF levothyroxine 50 mcg tablet 50 mcg PO QAM Qty: 90 0RF venlafaxine [Effexor XR] 150 mg capsule,extended release 24hr 150 mg PO QDAY Qty: 90 0RF Referrals: Miscellaneous,Doctor, MD [Primary Care Provider] - Stand Alone Forms: Patient Portal/API/Survey, Work Release Note
[2024-06-12] MEDS: cefTRIAXone 2,000 MG in SODIUM CHLORIDE 0.9% 100 ML 200 MG IV (11:16)
[2024-06-12] MEDS: KETOROLAC 30 MG/ML VIAL 15 MG IV (11:18)
== END 2024-06-12 11:52 | disposition home or self-care (01) ==
PROVIDERS: Emergency Provider Emergency Medicine
DX: L03.012 Cellulitis of left finger (principal)
CPT/HCPCS: 73140; 80053; 83690; 85025; 85652; 86140; 96365; 96375; 99283; 99284; J0696; J1885

== ENCOUNTER → 2024-08-13 17:42 | Outpatient (CLI) | payer OTHER, SELFPAY ==
--- NOTE | 2024-08-13 17:43 | DI.RAD.S_ITS ---
PROCEDURE: XR KNEE RT 3V INDICATIONS: Right knee and ankle injury TECHNIQUE: 3 views of the knee were acquired. COMPARISON: None. FINDINGS: Bones: No fractures or dislocations. No suspicious bony lesions. Soft tissues: Small joint effusion. No suspicious soft tissue calcifications. IMPRESSION: No acute bony abnormality. Small knee effusion. If symptoms persist with conservative management, consider cross-sectional imaging such as CT or MRI. Approved by: Betty Cho M.D.,Ph.D. on 08/13/2024 at 19:15
--- NOTE | 2024-08-13 17:43 | DI.RAD.S_ITS ---
PROCEDURE: XR ANKLE RT MIN 3V INDICATIONS: Right knee and ankle injury TECHNIQUE: 3 views of the ankle were acquired. COMPARISON: [facility], CR, XR ANKLE RT MIN 3V, 04/17/2024, 9:12. FINDINGS: Bones: No fractures or dislocations. Ankle mortise is normally aligned. No suspicious bony lesions. Soft tissues: No tibiotalar joint effusion. Achilles tendon appears normal. Soft tissue swelling about the lateral aspect of the ankle IMPRESSION: No acute bony abnormality or significant effusion. If symptoms persist with conservative management, consider cross-sectional imaging such as CT or MRI. Approved by: Betty Cho M.D.,Ph.D. on 08/13/2024 at 19:14
== END ==
LOC: RAD 17:43
PROVIDERS: Referring Provider Physician Assistant Surgical; Visit Provider Physician Assistant Surgical
DX: S99.911A Unspecified injury of right ankle, initial encounter (principal); S89.91XA Unspecified injury of right lower leg, initial encounter; M25.461 Effusion, right knee; M79.89 Other specified soft tissue disorders; X58.XXXA Exposure to other specified factors, initial encounter
CPT/HCPCS: 73562; 73610